=== PATIENT | male | born 1930 | race Caucasian/White ===

== ENCOUNTER → 2016-10-31 | Outpatient (CLI) | payer MEDICARE, BC ==
[~2016-10-31] MED LIST: ADVAIR 1001 DISK W/D INH; ADVAIR 2501 DISK W/D PO; ADVAIR DISKU1 250/50; ALBUTEROL 0.5ML INH; ALPRAZOLAM PO; ALPRAZOLAM0.25 MG PO; AMLODIPINE BESY10 MG PO; ASPIRIN; ASPIRIN PO; ASPIRIN81 MG; ASPIRIN81 MG PO; AZITHROMYCIN500 MG; BETAPACE PO; BETAPACE80 MG PO; BREO ELLIPTA PO; CELEXA PO; CERTAVITE; COMBIVENT INH14.7 GM INH; COUMADIN PO; COUMADIN5 MG; COUMADIN5 MG PO; DUONEB 2.5-0.5 M3 ML NEB; FLOMAX PO; FLOMAX0.4 M1 DOB; FLOMAX0.4 M1 PO; FLUTICASONE; FUROSEMIDE40 MG PO; HYDRALAZINE HCL25 MG PO; HYDRALAZINE HCL50 MG PO; HYDRALAZINE PO; IBUPROFEN400 MG PO; IPRATROPIUM0.2 MG/ML NEB; ISMO20 MG PO; ISORDIL PO; KCL PO; LACTULOSE10 G/15 M1 PO; LASIX; LASIX PO; LEVAQUIN PO; LEXAPRO PO; LEXAPRO5 MG PO; LIDODERM30 EA; LOTREL 5/20 MG1 CAP PO; LOVENOX SUBQ; METOLAZONE PO; MICRO-K; MULTAQ PO; MULTAQ400 MG PO; NASONEX17 GM; NORVASC PO; NORVASC10 MG PO; PHENERGAN25 M1 PO; PREDNISONE PO; PREDNISONE5 M1 PO; PREVACID PO; PRO AIR HFA; PRO AIR INHALER; PROBIOTIC PO; PROBIOTIC1 EAC1 PO; PROTONIX PO; ROBITUSSIN-DM118 M1; SODIUM BICARBO650 MG PO; SOLU MEDROL; SYMBICORT INH; TAMIFLU75 M1 PO; TRAMADOL HCL-AP1 TAB PO; TRAMADOL PO; TRAMADOL-APAP1 EACH PO; TUDORZA PRESS400 MCG IH; TUDORZA PRESSAIR; ULORIC PO; ULORIC40 MG PO; VICODIN 5/1 TAB 5/50 PO; VITAMIN B 12 PO; VITAMIN B12 PO; VITAMIN B12-FO1 EACH PO; VITAMIN C PO; VITAMIN C500 M5 PO; VITAMIN D3 PO; VITAMIN D31000 UNI1 PO; WARFARIN PO; XANAX0.5 MG; ZEMPLAR PO; ZEMPLAR1 MCG DOB; ZEMPLAR1 MCG PO; ZINC; ZINC30 MG PO; ZINC50 M1 PO; ZITHROMAX PO; ZOCOR; ZOFRAN ODT4 MG PO; ZOFRAN ODT4 MG SL; ZOFRANODT PO; ZYRTEC PO; [UNRECOGNIZED DRUG - OTHER]; [UNRECOGNIZED DRUG - OTHER] PO
--- NOTE | ~2016-10-31 | CT4 ---
[facility] A Service of [facility] RADIOLOGY TEXT RESULTS PATIENT: TRISTAN DAS LOCATION: [facility] : [birth year] UNIT #: [id number] AGE: [address]: SABINA HAWLEY SEX: M ORDER DR: [id number] [facility] [address] [place], [place] [address] [id number] O MR#: [id number] Acc #: [id number] NAME: TRISTAN DAS. : 1930 SEX: M STUDY DATE/TIME: 10/31/2016 15:12 UNIT: [facility] ROOM: STUDY DESCRIPTION: CT Abd and Pelv Wo Cont Attending Physician: Sabina Hawley Referring Physician: Sabina Hawley Ordering Physician: Pj Scruggs M.D. Primary Care Physician: Ashwin Tipton D.O. MEDICAL IMAGING REPORT This report is preliminary unless electronic signature is present EXAM CT of the abdomen and pelvis without contrast INDICATIONS Right groin pain for [address] images were obtained from the dome of the diaphragm through the symphysis pubis. No oral or intravenous contrast material was administered. This CT exam was performed with one or more of the following radiation dose reduction techniques: Automatic exposure control, adjustment of mA and/or kV according to patient size, and iterative reconstruction. FINDINGS Images through the lung bases demonstrate background emphysematous changes with superimposed fibrosis. This patient does have a 1.2 cm subpleural nodule within the left lower lobe which is indeterminate. An additional nodule is identified within the lingula measuring up to about 1.4 cm in size. These certainly could be benign but are new when compared to March 2013. I would suggest either further characterization with PET or short-term CT followup in 3 months. This patient has a large simple cyst arising from the superior pole of the left kidney. Adrenal glands appear unremarkable. No additional renal cysts are seen. Multiple calcified granulomata are seen within the spleen. Liver is unremarkable. Gallbladder is surgically absent. Dense atherosclerotic involvement of the abdominal aorta continues into the iliac vessels. Urinary bladder appears unremarkable. A few dystrophic calcifications are seen within the prostate gland. This patient has extensive colonic diverticulosis, although I do not see any convincing evidence of diverticulitis. I do not see any free fluid or adenopathy within the pelvis. [facility] A Service of 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 Patient has some mild stranding identified within the right lower quadrant, clinical significance is uncertain. This could reflect some mild enteritis, although the adjacent bowel does not appear particularly thick-walled. Of note, patient's appendix is visualized and is within normal limits. IMPRESSION 1. Patient is again noted to have a simple left renal cyst arising from the superior pole of the left kidney. No additional followup is necessary. 2. 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 Patient has developed 2 nodules within the left lung base ranging in size from 1.2-1.4 cm. These may be benign; however, given background changes, I would suggest either further evaluation with PET or with short-term CT followup in 3 months. 3. Patient reportedly has had some right lower quadrant pain. I do question if there is some mild stranding seen within the right lower quadrant. The possibility of some superimposed colitis/enteritis in this area is not excluded. Of note, the patient's appendix is visualized and is within normal limits. 4. Colonic diverticulosis without any evidence of diverticulitis. 5. Small hiatal hernia. Please see the body of the report for any other additional incidental findings. Dictated by... Yumiko Ortiz M.D. THIS IS AN ELECTRONICALLY VERIFIED REPORT Yumiko Ortiz M.D. at 11/01/2016 5:00 PM AFF/psc TD: 11/01/2016 02:47 JOB #: [id number] MEDICAL IMAGING REPORT Page 1 of 1 COPY
== END | disposition home or self-care (01) ==
LOC: CCAT 14:44
DX: K66.8 Other specified disorders of peritoneum (principal); N28.1 Cyst of kidney, acquired; R91.8 Other nonspecific abnormal finding of lung field; J84.10 Pulmonary fibrosis, unspecified; K57.30 Diverticulosis of large intestine without perforation or abscess without bleeding; K44.9 Diaphragmatic hernia without obstruction or gangrene
CPT/HCPCS: 74176